=== PATIENT | female | born 1980 | race Caucasian/White ===

== ENCOUNTER → 2019-01-30 16:27 | Outpatient (CLI) | payer BC, SELFPAY ==
[2019-01-30 16:24] VITALS: BMI 31.8
--- NOTE | 2019-01-30 16:32 | RAD_ITS ---
STUDY: X-RAY - LEFT FOOT CLINICAL: Female, 38 years old. Pain and swelling second and third metatarsal area. TECHNIQUE: 3 view(s) of the foot. COMPARISON: None. FINDINGS: Normal talus, calcaneus, and tarsal bones. Normal visualized subtalar, talonavicular, calcaneocuboid, tarsal and tarsometatarsal articulations. Normal metatarsi. Normal metatarsophalangeal joint of the great toe. Normal tibial and fibular sesamoid bones. Normal interphalangeal joint of the great toe. Normal phalanges of the great toe. Normal second through fifth metatarsophalangeal joints. Normal interphalangeal joints and phalanges of the lesser toes. There is mild soft tissue swelling lateral to the fifth proximal interphalangeal joint. RAD/Foot min 3 Views IMPRESSION: Soft tissue swelling, otherwise negative x-ray examination of the foot. Electronically Signed: Rosa Zheng MD at 16:52 EDT Tel , Service support ,
== END ==
LOC: MTRAD 16:30
PROVIDERS: Family Provider Family Medicine; PCP Family Medicine; Referring Provider Physician Assistant Surgical; Visit Provider Physician Assistant Surgical
DX: M79.672 Pain in left foot (principal)
CPT/HCPCS: 73630